=== PATIENT | female | born 1985 | race Caucasian/White ===

== ENCOUNTER 2023-04-27 09:36 | Emergency (ER) | payer MEDICAID ==
[~2023-04-27] VITALS: Ht 160 cm; Wt 77.1 kg
[2023-04-27 09:48] VITALS: BP_SYST 142; PULSE 84; RESP 19; TEMP 98; O2SAT 97
[2023-04-27] MEDS ORDERED: AMOX-423 PO (10:16)
[2023-04-27] MEDS ORDERED: IBUP-1969 PO (10:16)
[2023-04-27] MEDS ORDERED: ACET-2634 PO (10:16)
[2023-04-27] MEDS: KETOROLAC TROMETHAMINE 30 MG VIAL IM ONE (10:34)
[2023-04-27 10:48] VITALS: BP_SYST 121; PULSE 80; RESP 19; TEMP 98; O2SAT 97
== END 2023-04-27 10:46 | disposition home or self-care (01) ==
LOC: SED 09:36
DX: S01.511A Laceration without foreign body of lip, initial encounter (principal); R03.0 Elevated blood-pressure reading, without diagnosis of hypertension; X58.XXXA Exposure to other specified factors, initial encounter; Y93.89 Activity, other specified; Y92.89 Other specified places as the place of occurrence of the external cause; Y99.8 Other external cause status
CPT/HCPCS: 99283; 96372; J1885